=== PATIENT | female | born 1980 | race Caucasian/White ===

== ENCOUNTER 2018-05-12 06:48 | Day surgery (SDC) | payer BC ==
[~2018-05-12] VITALS: Ht 175.3 cm; Wt 98.2 kg
[~2018-05-12 06:48] MED LIST: ALPH600C PO; BLAC540C2 PO; GABA600T4 PO; LIDOCAINE 1% MDV 20ML VIAL SQ PRN; MAGN400C2 PO; META1TAB22 PO; TRAN650T PO; TURM500C PO
[2018-05-12] MEDS ORDERED: LR 1,000 ML IV ONE (07:00)
[2018-05-12] MEDS ORDERED: ACETAMINOPHEN 650 MG SUPP PR ONE (07:00)
[2018-05-12 07:26] LABS: HEMATOCRIT 33.9 % (36.0-47.0); HEMOGLOBIN 10.7 g/dl (12.0-15.5); MEAN CORPUSCULAR HGB CONC 31.6 g/dl (32.0-36.5); MEAN CORPUSCULAR VOLUME 88.7 fl (80.0-96.0); PLATELET COUNT, AUTOMATED 538 10^3/uL (150-450); RED BLOOD COUNT 3.82 10^6/uL (4.00-5.40); WHITE BLOOD COUNT 7.7 10^3/uL (4.0-10.0)
[2018-05-12] MEDS ORDERED: LIDOCAINE 2% INJ 100 MG/5 ML SDV (FOR ANES.) As Ordered ONE (07:51)
[2018-05-12] MEDS ORDERED: dexameTHASONE 4 MG/ML 1ML VIAL (J1100) As Ordered ONE (07:51)
[2018-05-12] MEDS ORDERED: ONDANSETRON 4MG/2ML VIAL (J2405) As Ordered ONE (07:51)
[2018-05-12] MEDS ORDERED: NEOSTIGMINE 10 MG/10 ML VIAL (J2710) As Ordered ONE (07:51)
[2018-05-12] MEDS ORDERED: LIDOCAINE 2% JELLY 30 ML As Ordered ONE (07:51)
[2018-05-12] MEDS ORDERED: GLYCOPYRROLATE INJ 0.2 MG/ML 2 ML VIAL As Ordered ONE (07:51)
[2018-05-12] MEDS ORDERED: PROPOFOL 200 MG/20 ML VIAL As Ordered ONE (07:51)
[2018-05-12] MEDS ORDERED: MIDAZOLAM INJ 2 MG/2 ML VIAL (J2250) As Ordered ONE (07:51)
[2018-05-12] MEDS ORDERED: fentaNYL 100 MCG/2 ML INJECTION (J3010) As Ordered ONE ×2 (07:52→09:29)
[2018-05-12] MEDS ORDERED: ROCURONIUM BROMIDE 50 MG/5 ML VIAL As Ordered ONE (07:56)
[2018-05-12 07:57] LABS: URINE PREG TEST NEGATIVE (NEGATIVE)
[2018-05-12] MEDS ORDERED: PERC5TAB12 PO (08:02)
[2018-05-12] MEDS ORDERED: IBUP80TA PO (08:02)
[2018-05-12] MEDS ORDERED: BUPIVACAINE HCL 0.25% 30 ML VIAL As Ordered ONE (08:12)
[2018-05-12] MEDS ORDERED: ACETAMINOPHEN 650 MG SUPP As Ordered ONE (08:29)
[2018-05-12] MEDS ORDERED: KETOROLAC 60 MG/2 ML VIAL (J1885) As Ordered ONE (09:25)
[2018-05-12] MEDS: PERCOCET 5MG/325MG TAB PO PRN ×2 (09:40→10:14)
[2018-05-12] MEDS ORDERED: PERCOCET 5MG/325MG TAB As Ordered ONE (09:41)
--- NOTE | 2018-05-12 09:41 | RO ---
DATE OF PROCEDURE: 05/12/2018 Katrina is a 37-year-old female with an extensive history of menometrorrhagia and also multiparity, desires permanent tubal sterilization. After counseling in the office a decision was made for laparoscopic bilateral tubal ligation using Filshie clip, diltation and curettage (D and C) and a NovaSure endometrial ablation. PREOPERATIVE DIAGNOSES: 1. Menometrorrhagia. 2. Desires permanent tubal sterilization. POSTOPERATIVE DIAGNOSES 1. Menometrorrhagia. 2. Desires permanent tubal sterilization. 3. Fluffy endometrium. PROCEDURE: 1. Laparoscopic bilateral tubal ligation using Filshie clip 2. Dilation and curettage. 3. Hysteroscopy. 4. NovaSure endometrial ablation. SURGEON: Dr. Michele Lane. ANESTHESIA: General. COMPLICATIONS: None. ESTIMATED BLOOD LOSS: Less than 20 mL. FINDINGS: Normal tubes and uterus with small ovarian cyst. Hysteroscopy: The bilateral tubal ostia was visualized fluffy endometrium noted. No other abnormalities noted. SPECIMENS SENT TO THE LAB: Endometrial curettings. The NovaSure endometrial ablation cycle lasted 70 seconds cavity length was 6.5 and the cavity width was 4. DESCRIPTION OF PROCEDURE: After obtaining informed consent, the patient was taken to the operating room where general anesthetic was found to be adequate. She was then draped and prepped in the usual sterile fashion in dorsal lithotomy position. At this point a Castaneda catheter was placed in the bladder for drainage. I then placed the uterine manipulator. Then I turned my attention to the abdomen where 5 mm infraumbilical incision was made. Using the Veress needle the abdomen was insufflated with CO2 gas to approximately 3.5 liters. I then placed an 8 mm right lateral port under direct visualization. The patient was placed in Trendelenburg and the pelvis inspected. Bilateral fallopian tube identified with the fimbriated end. I then placed a Filshie clip approximately 3-4 cm away from the cornual area in each tube. Pelvis copiously irrigated with normal saline and suctioned out. Good hemostasis noted. No other anterior abnormalities noted. At this point, the laparoscope and the instruments were removed. I then turned my attention to the vagina where the uterine manipulator was removed. The uterus was sound to approximately 9 cm in length giving a cavity length of 6.5. At this point, the cervix was serially dilated. The hysteroscope was inserted. A bilateral tubal ostia noted with fluffy endometrium and the hysteroscope was removed. A sharp curettage of the endometrial lining was done. We then inserted the NovaSure device. The cavity length adjusted to 6.5. The cavity width to 4. A cavity test was then done. After passing the cavity test, the device was enabled and the endometrial ablation cycle was inserted and lasted approximately 70 seconds. Good ablative efforts noted. Good hemostasis noted. All instruments removed. The laparoscopic ports were then closed using Dermabond. 0.25% Marcaine was placed for postoperative pain. The patient tolerated procedure well. She was then transferred to recovery room in stable condition.
[2018-05-12] MEDS ORDERED: fentaNYL 100 MCG/2 ML INJECTION (J3010) IV PRN (10:00)
[2018-05-12] MEDS ORDERED: PERCOCET 5MG/325MG TAB PO PRN (10:00)
[2018-05-12] MEDS ORDERED: ONDANSETRON 4MG/2ML VIAL (J2405) IV PRN (10:00)
[2018-05-12] MEDS ORDERED: LR 1,000 ML IV SCH (10:00)
[2018-05-12 11:04] VITALS: BP 140/82
[2018-05-12] MEDS ORDERED: IBUPROFEN 800 MG TAB PO SCH (14:00)
== END 2018-05-12 11:10 | disposition home or self-care (01) ==
LOC: M SDC 06:48
PROVIDERS: ATTEND Obstetrics & Gynecology
DX: Z30.2 Encounter for sterilization (principal); N92.1 Excessive and frequent menstruation with irregular cycle; Z87.891 Personal history of nicotine dependence
CPT/HCPCS: 36415; 58563; 58671; 84703; 85027; 86850; 86900; 86901; 88305; A4264; J0690; J1100; J1885; J2250; J2405; J2710; J3010